=== PATIENT | male | born 1985 | race Caucasian/White ===

== ENCOUNTER → 2024-01-21 09:12 | Outpatient (CLI) | payer OTHER, SELFPAY ==
--- NOTE | 2024-01-21 09:16 | DI.RAD.S_ITS ---
PROCEDURE: XR HAND RT MIN 3V INDICATIONS: arthritis TECHNIQUE: 3 views of the hand(s) acquired. COMPARISON: None. FINDINGS: Bones: No acute fractures or dislocations. Carpal bones are normally aligned. No suspicious bony lesions. Soft tissues: No suspicious soft tissue calcifications. IMPRESSION: Old healed 4th and 5th angulated metacarpal fractures. No arthritic changes Approved by: Abhay Carter M.D. on 01/21/2024 at 18:58
--- NOTE | 2024-01-21 09:16 | DI.RAD.S_ITS ---
PROCEDURE: XR CLAVICLE RT INDICATIONS: right shoulder arthritis TECHNIQUE: 2 views of the clavicle were acquired. COMPARISON: None. FINDINGS: Bones: No fractures or dislocations. No suspicious bony lesions. Soft tissues: No suspicious soft tissue calcifications. IMPRESSION: No acute bony abnormality. Approved by: Abhay Carter M.D. on 01/21/2024 at 18:54
[2024-01-21 11:03] LABS: Free T3, Triiodothyronine Free 4.41 pg/mL (2.77-5.27); Vitamin D 25 Hydroxy (D3) 25.5 ng/mL (30.0-100.0)
[2024-01-21 11:16] LABS: Thyroid Stimulating Hormone 1.55 uIU/mL (0.47-4.68)
== END ==
PROVIDERS: Referring Provider Chiropractor; Visit Provider Chiropractor
DX: E03.9 Hypothyroidism, unspecified (principal); M13.811 Other specified arthritis, right shoulder
CPT/HCPCS: 36415; 73000; 73120; 82306; 84439; 84443; 84481